=== PATIENT | male | born 1995 | race Caucasian/White ===

== ENCOUNTER 2017-02-26 21:09 | Emergency (ER) | payer BC, OTHER ==
[2017-02-26 21:15] VITALS: BP 116/69; BMI 21.5
[2017-02-26] MEDS ORDERED: NS 1000 ML 1,000 ML IV ONE (21:56)
[2017-02-26] MEDS ORDERED: ZOFRAN INJ 4 MG VIAL IVP ONE (21:56)
--- NOTE | 2017-02-26 21:58 | DR.GENAD ---
HPI - PCP Primary Care Physician: [email or web address] - HPI Comment HPI Comment: NOT HOLDING DOWN FLUID. WEAK AND TIRED. NO FEVR OR DYSURIA. - Complaint/Symptoms Chief Complaint Doctors Comments: N/V/D AND ABDOMINAL PAIN . PATIENT IS A DIABETIC. GLUCOSE IS BEING RUNNING HIGH TODAY. TOOK EXTRA SLIDDING SCALE INSULIN AT HOME. Chief Complaint:: pt states' i've been throwing up and diarrhea and my sugar is dangelo rocketing it was 372 i took insulin 6 units of novolog 15 minutes before i checked my sugar" - Nurses notes reviewed Nurses Notes Review: Yes - Source History Provided: Patient - Mode of Arrival Mode of Arrival: Ambulatory - Timing Onset of Chief Complaint: 02/26/17 Came on: Suddenly - Duration Duration: Constant Duration: Hours - Severity Severity: Moderate PMH - PMH Past Medical History: Yes Past Medical History: Diabetes Past Surgical History: No - Family History History of Family Medical Conditions: Yes Family Medical History: CT, Coronary Artery Disease, Hypertension - Social History Alcohol Use: Occasionally Do you use any recreational Drugs:: No Lives With: Family - infectious screening In the last 2 months have you had wt loss of >10#?: NO Have you had fever, night sweats or hemotysis?: No Have you traveled outside the country in the last 6 months?: No Isolation: Standard ROS - Review of Systems Constitutional: Weakness. negative: Chills, Fever Eyes: No Symptoms Reported. negative: Eye Pain, Discharge ENTM: No Symptoms Reported. negative: Ear Pain, Nose Discharge, Nose Congestion , Throat Pain Respiratoy: No Symptoms Reported. negative: Non-Productive Cough, Short of Breath, Wheezing, Hemoptysis Cardiovascular: No Symptoms Reported, Palpitations. negative: Chest Pain, Syncope Gastrointestinal/Abdominal: Abdominal Pain, Diarrhea, Nausea, Vomiting. negative: Constipation Genitourinary: Dysuria. negative: Frequency, Hematuria Neurological: No Symptoms Reported, Headache, Weakness, Dizziness Musculoskeletal: Muscle Pain Integumentary: No Symptoms Reported, Change in Color Hematologic/Lymphatic: Easy Bruising Endocrine: Flushing, Increased Thirst, Increased Urine All Other Systems: Reviewed and Negative PE - Vital Signs Vitals: Temperature 982 F Pulse Rate 109 Respiratory Rate 18 Blood Pressure [Left Arm] 106/62 Blood Pressure 116/69 O2 Sat by Pulse Oximetry 97 - General Limitations: No Limitations General Appearance: Alert - Head Head Exam: Normal Inspection - Eyes Eye exam: Normal Appearance - ENT ENT Exam: Normal External Ear Exam External Ear Exam: Normal External Inspection TM/Canal Exam: Left Normal Nose Exam: Normal Nose Exam Mouth Exam: Normal Inspection Throat Exam: Normal Inspection - Neck Neck Exam: Trachea Midline - Chest Chest Inspection: Tenderness - Respiratory Respiratory Exam: Chest Wall Tenderness Respiratory Exam: Bilateral Clear to Auscultation - Cardiovascular Cardiovascular Exam: Regular Rate, Normal Rhythm, Normal Heart Sounds - Abdominal Exam Abdominal Exam: Normal Bowel Sounds, Soft, Tenderness - Extremities Extremities Exam: Normal Inspection - Back Back Exam: Normal Inspection - Neurologic Neurological Exam: Alert, Oriented X3 - Psychiatric Psychiatric Exam: Normal Affect, Normal Mood - Skin Skin Exam: Dry MDM - Additional Information Additional Information Obtained From: Family - Differential Diagnosis Differential Diagnosis: DKA, HYPEROSMOLAR STATE, DEHYDRATION, GASTROENTERITIS, GASTROPARESIS Course - Treatment Treatment: SEE ORDERS. IV FLUIDS AND NAUSEA MED IN ED. - Reevaluation 1st: Improved - Education/Counseling Education/Counseling: Patient, Family, Education Educated On: Treatment, Diagnosis, Needs for Follow Up ROR - Labs Reviewed Laboratory Results Reviewed?: Yes Result Diagrams: 02/26/17 22:05 02/26/17 22:05 Laboratory: WBC 10.8 X10^3/uL (3.6-10.0) H 02/26/17 22:05 RBC 5.73 X10^6/uL (4.7-6.0) 02/26/17 22:05 Hgb 17.3 g/dL (13.5-18.0) 02/26/17 22:05 Hct 49.4 % (42.0-54.0) 02/26/17 22:05 MCV 86.2 fL (80.0-100.0) 02/26/17 22:05 MCH 30.2 pg (27.0-34.0) 02/26/17 22:05 MCHC 35.0 g/dL (33.0-35.0) 02/26/17 22:05 RDW 12.6 % (11.6-16.5) 02/26/17 22:05 Plt Count 218 X10^3/uL (150.0-450.0) 02/26/17 22:05 Plt Count Comment Adequate (ADEQUATE) 02/26/17 22:05 MPV 8.2 fL (7.4-11.0) 02/26/17 22:05 Neut % 92.3 % (42.0-75.0) H 02/26/17 22:05 Lymph % 3.7 % (21.0-51.0) L 02/26/17 22:05 [place] % 3.4 % (0.0-13.0) 02/26/17 22:05 Eos % 0.3 % (0.9-2.9) L 02/26/17 22:05 Baso % 0.3 % (0.2-1.0) 02/26/17 22:05 Neut # 10.0 x10^3/uL (2.2-4.8) H 02/26/17 22:05 Lymph # 0.4 X10^3/uL (1.3-2.9) L 02/26/17 22:05 [place] # 0.4 x10^3/uL (0.3-0.8) 02/26/17 22:05 Eos # 0.0 x10^3/uL (0.0-0.2) 02/26/17 22:05 Baso # 0.0 X10^3/uL (0.0-0.1) 02/26/17 22:05 Absolute Nucleated RBC 0.0 /100WBC 02/26/17 22:05 Total Counted 100 02/26/17 22:05 Neutrophils % (Manual) 88 % (39-76) H 02/26/17 22:05 Band Neutrophils % 2 % (0-10) 02/26/17 22:05 Lymphocytes % (Manual) 7 % (13-43) L 02/26/17 22:05 Monocytes % (Manual) 3 % (4-9) L 02/26/17 22:05 Plt Morphology Comment Normal (NORMAL) 02/26/17 22:05 RBC Morphology Normal (NORMAL) 02/26/17 22:05 Sodium 138 mmol/L (136-145) 02/26/17 22:05 Corrected Sodium 142 mmol/L (136-145) 02/26/17 22:05 Potassium 4.5 mmol/L (3.5-5.1) 02/26/17 22:05 Chloride 101 mmol/L (98-107) 02/26/17 22:05 Carbon Dioxide 27.4 mmol/L (21-32) 02/26/17 22:05 BUN 16 mg/dL (7-18) 02/26/17 22:05 Creatinine 1.17 mg/dL (0.70-1.30) 02/26/17 22:05 Est GFR (MDRD) Af Amer > 60 (>60) 02/26/17 22:05 Est GFR (MDRD) Non-Af > 60 (>60) 02/26/17 22:05 Glucose 273 mg/dL (65-99) H 02/26/17 22:05 Calcium 9.4 mg/dL (8.5-10.1) 02/26/17 22:05 Corrected Calcium TNP 02/26/17 22:05 Total Bilirubin 1.00 mg/dL (0.2-1.0) 02/26/17 22:05 AST 20 Units/L (15-37) 02/26/17 22:05 ALT 30 Units/L (12-78) 02/26/17 22:05 Alkaline Phosphatase 95 Units/L (46-116) 02/26/17 22:05 Total Protein 8.7 g/dL (6.4-8.2) H 02/26/17 22:05 Albumin 4.7 g/dL (3.4-5.0) 02/26/17 22:05 Globulin 4.0 g/dL (2.5-4.5) 02/26/17 22:05 Albumin/Globulin Ratio 1.2 Ratio (1.1-2.1) 02/26/17 22:05 Specimen Type Clean catch urine 02/26/17 23:39 Urine Color Yellow (YELLOW) 02/26/17 23:39 Urine Appearance Clear (CLEAR) 02/26/17 23:39 Urine pH 5.0 (5.0 - 8.0) 02/26/17 23:39 Ur Specific [place] 1.015 (1.000-1.030) 02/26/17 23:39 Urine Protein Negative (NEGATIVE) 02/26/17 23:39 Urine Glucose (UA) 4+ (NEGATIVE) 02/26/17 23:39 Urine Ketones 3+ (NEGATIVE) 02/26/17 23:39 Urine Occult Blood 1+ (NEGATIVE) 02/26/17 23:39 Urine Nitrite Negative (NEGATIVE) 02/26/17 23:39 Urine Bilirubin Negative (NEGATIVE) 02/26/17 23:39 Urine Urobilinogen Normal (NORMAL) 02/26/17 23:39 Ur Leukocyte Esterase Negative (NEGATIVE) 02/26/17 23:39 Urine RBC 0-1 /HPF (NEGATIVE) 02/26/17 23:39 Urine WBC 0-1 /HPF (NEGATIVE) 02/26/17 23:39 Ur Squamous Epith Cells Rare /HPF (NEGATIVE) 02/26/17 23:39 Urine Bacteria Trace /HPF (NEGATIVE) 02/26/17 23:39 Ur Culture Indicated? No/not indicated 02/26/17 23:39 Acetone, Semi-Quant Negative (NEGATIVE) 02/26/17 22:05 - Diagnosis Discharge Problem: Hyperglycemia, Dehydration, Gastroenteritis - Discharge Plan Disposition: HOME, SELF-CARE Condition: Stable Prescriptions: Diphenoxylate/Atropine [Lomotil] 1 tab PO TID PRN #12 tab PRN Reason: Ondansetron HCl [Zofran Tab 4 mg] 4 mg PO Q8H PRN #12 tab PRN Reason: Nausea/Vomiting - Follow ups/Referrals Follow ups/Referrals: [facility],None [Primary Care Provider] - 1 day - Instructions Instructions: Hyperglycemia, [id number], Viral Gastroenteritis, Adult, Easy- to-Read Additional Instructions: RETURN TO ED IF WORSE.
[2017-02-26] MEDS ORDERED: NS 1000 ML 1,000 ML ONE (22:07)
[2017-02-26] MEDS ORDERED: ZOFRAN INJ 4 MG VIAL ONE (22:07)
[2017-02-26 22:15] LABS: BASOPHILS % (AUTO) 0.3 % (0.2-1.0); EOSINOPHILS % (AUTO) 0.3 % (0.9-2.9); HEMATOCRIT 49.4 % (42.0-54.0); HEMOGLOBIN 17.3 g/dL (13.5-18.0); LYMPHOCYTES # (AUTO) 0.4 X10^3/uL (1.3-2.9); LYMPHOCYTES % (AUTO) 3.7 % (21.0-51.0); MEAN CORPUSCULAR HEMOGLOBIN 30.2 pg (27.0-34.0); MEAN CORPUSCULAR VOLUME 86.2 fL (80.0-100.0); MEAN PLATELET VOLUME 8.2 fL (7.4-11.0); MONOCYTES # (AUTO) 0.4 x10^3/uL (0.3-0.8); MONOCYTES % (AUTO) 3.4 % (0.0-13.0); NEUTROPHILS % (AUTO) 92.3 % (42.0-75.0); PLATELET COUNT 218 X10^3/uL (150.0-450.0); RED BLOOD COUNT 5.73 X10^6/uL (4.7-6.0); RED CELL DISTRIBUTION WIDTH 12.6 % (11.6-16.5); WHITE BLOOD COUNT 10.8 X10^3/uL (3.6-10.0)
[2017-02-26 22:26] LABS: SERUM ACETONE NEGATIVE (NEGATIVE)
[2017-02-26 22:29] LABS: ALANINE AMINOTRANSFERASE 30 Units/L (12-78); ALBUMIN 4.7 g/dL (3.4-5.0); ALKALINE PHOSPHATASE 95 Units/L (46-116); ASPARTATE AMINO TRANSFERASE 20 Units/L (15-37); BLOOD UREA NITROGEN 16 mg/dL (7-18); CALCIUM 9.4 mg/dL (8.5-10.1); CARBON DIOXIDE 27.4 mmol/L (21-32); CHLORIDE 101 mmol/L (98-107); COR NA(FOR HYPERGLY) 142 mmol/L (136-145); CREATININE 1.17 mg/dL (0.70-1.30); GLUCOSE 273 mg/dL (65-99); SODIUM 138 mmol/L (136-145); TOTAL PROTEIN 8.7 g/dL (6.4-8.2); eGFR BLACK RACES > 60 (>60); eGFR NON BLACK RACES > 60 (>60)
[2017-02-26 22:35] LABS: BAND NEUTROPHILS % 2 % (0-10); PLATELET MORPHOLOGY COMMENT NORMAL (NORMAL)
[2017-02-27 00:08] LABS: BILIRUBIN,URINE NEGATIVE (NEGATIVE); BLOOD/HEMOGLOBIN,URINE 1+ (NEGATIVE); GLUCOSE, URINE 4+ (NEGATIVE); KETONES,URINE 3+ (NEGATIVE); LEUKOCYTE ESTERASE ,URINE NEGATIVE (NEGATIVE); NITRITES,URINE NEGATIVE (NEGATIVE); PROTEIN,URINE NEGATIVE (NEGATIVE); UROBILINOGEN,URINE NORMAL (NORMAL)
[2017-02-27 00:26] LABS: APPEARANCE,URINE CLEAR (CLEAR); BACTERIA,URINE TRACE /HPF (NEGATIVE); COLOR,URINE YELLOW (YELLOW); RBC,URINE 0-1 /HPF (NEGATIVE); SQUAMOUS EPITHELIAL CELL,UR RARE /HPF (NEGATIVE)
== END 2017-02-27 00:07 | disposition home or self-care (01) ==
LOC: ER 21:21
DX: E10.65 Type 1 diabetes mellitus with hyperglycemia (principal); E86.0 Dehydration; K52.9 Noninfective gastroenteritis and colitis, unspecified
CPT/HCPCS: 36415; 80053; 81001; 82009; 85025; 96365; 96374; 99282; 99283; A4222; J2405